=== PATIENT | female | born 1985 | race African-American/Black ===

== ENCOUNTER 2016-05-13 10:53 | Emergency (ER) | payer OTHER ==
[~2016-05-13] VITALS: Ht 165.1 cm; Wt 83.9 kg
[2016-05-13 11:00] VITALS: BP 115/71
[2016-05-13] MEDS ORDERED: HYDROCODONE/APAP 5/325MG TABLET. PO ONE (11:30)
[2016-05-13] MEDS ORDERED: HYDR-971 PO (11:41)
[2016-05-13] MEDS ORDERED: AMOX875T PO (11:41)
--- NOTE | 2016-05-13 11:41 | PHYS DOC ---
Past Medical History Past Medical History: No Pertinent History Past Surgical History: No Surgical History Alcohol Use: Rarely Drug Use: None Adult General Chief Complaint Chief Complaint: DENTAL PROBLEM HPI HPI Patient is a 30 year old female who presents with bilateral lower gum dental pain that began 4 days ago. Patient denies any fever or trismus. She states she has a dentist and will schedule an appointment. Review of Systems Review of Systems Constitutional: Denies fever or chills [] Eyes: Denies change in visual acuity, redness, or eye pain [] HENT: Dental pain Musculoskeletal: Denies back pain or joint pain [] Integument: Denies rash or skin lesions [] Neurologic: Denies headache, focal weakness or sensory changes [] Endocrine: Denies polyuria or polydipsia [] Current Medications Current Medications Current Medications Medications (Trade) Dose Ordered Sig/Jeannie Start Time Stop Time Status Last Admin Dose Admin Acetaminophen/ Hydrocodone Bitart (Lortab 5/325) 1 tab 1X ONCE 05/13/16 11:30 05/13/16 11:31 DC 05/13/16 11:34 1 TAB Allergies Allergies Allergies Coded Allergies Type Severity Reaction Last Updated Verified peanut Allergy Intermediate hives 05/13/16 Yes Physical Exam Physical Exam Constitutional: Well developed, well nourished, no acute distress, non-toxic appearance. [] HENT: Normocephalic, atraumatic, bilateral external ears normal, oropharynx moist, no oral exudates, nose normal. [] Approximately tooth #20 is broken and decayed. Scattered dental caries throughout her teeth, no gum redness or swelling. Skin: Warm, dry, no erythema, no rash. [] Back: No tenderness, no CVA tenderness. [] Extremities: No tenderness, no cyanosis, no clubbing, ROM intact, no edema. [] Neurologic: Alert and oriented X 3, normal motor function, normal sensory function, no focal deficits noted. [] Psychologic: Affect normal, judgement normal, mood normal. [] Current Patient Data Vital Signs Vital Signs Date Time Temp Pulse Resp B/P Pulse Ox O2 Delivery O2 Flow Rate FiO2 05/13/16 11:34 20 99 Room Air 05/13/16 11:00 98.1 72 98.1 EKG EKG [] Radiology/Procedures Radiology/Procedures [] Course & Med Decision Making Course & Med Decision Making Pertinent Labs and Imaging studies reviewed. (See chart for details) Patient is in the ED with infected dental caries. Discharged with amoxicillin and 10 tablets of [place]. Instructed to follow-up with her dentist as soon as possible. Sandeep Disclaimer Sandeep Disclaimer This electronic medical record was generated, in whole or in part, using a voice recognition dictation system. Departure Departure Impression: Primary Impression: Dentalgia Additional Impression: Infected dental caries Disposition: HOME, SELF-CARE Condition: STABLE Referrals: NO PCP (PCP) Follow-up with your dentist as soon as possible Patient Instructions: Dental Pain, [id number] Additional Instructions: You were seen for dental infection and pain. Please follow-up with your dentist for the dental pain as soon as possible. Complete your antibiotics. Scripts Hydrocodone/Apap 5-325 ([place] 5-325 Tablet)1 Each Tablet1-2 Tab PO Q4-6HRS PRN PAIN #10 TAB MUST FILL ANTIBIOTICS PRIOR TO PAIN MEDICINES Prov:YOON FERNANDES APRN 05/13/16 Amoxicillin 875 Mg Tablet1 Tab PO BID #20 TAB Prov:YOON FERNANDES APRN 05/13/16 Problem Qualifiers YOON FERNANDES APRN May 13, 2016 11:41
== END 2016-05-13 11:45 | disposition home or self-care (01) ==
LOC: ER 10:53
DX: K02.9 Dental caries, unspecified (principal); Z91.010 Allergy to peanuts
CPT/HCPCS: 99283